=== PATIENT | female | born 1980 | race Caucasian/White ===

== ENCOUNTER → 2016-03-15 | Outpatient (CLI) | payer OTHER ==
--- NOTE | 2016-03-15 14:23 | US ---
Left Breast Ultrasound History: Palpable lump x2 weeks Technique: Ultrasound exam with a high frequency linear transducer. Findings: At the 1 o'clock radial, 4 cm from the nipple is a large ovoid 3.3 x 3.5 x 2 cm simple cyst . There is a small peripheral daughter cyst. There is no mural nodularity or abnormal Doppler blood f low. Impression: The patient's palpable lump is a simple cyst. If this cyst becomes painful, it could be c ompletely aspirated under ultrasound guidance. BI-RADS 2 benign. Results discussed with the patient in detail.
== END ==
LOC: CIMAGING 13:56
PROVIDERS: ATTEND Family Medicine
DX: N63 Unspecified lump in breast (principal)
CPT/HCPCS: 76641-PO